=== PATIENT | male | born 1975 | race Caucasian/White ===

== ENCOUNTER 2016-12-29 12:58 | Outpatient (CLI) | payer OTHER | END 2016-12-29 12:59 | disposition home or self-care (01) | DX: S30.0XXA Contusion of lower back and pelvis, initial encounter (principal) ==

== ENCOUNTER 2017-01-03 14:24 | Outpatient (CLI) | payer OTHER | END 2017-01-03 14:25 | disposition home or self-care (01) | DX: M54.5 Low back pain (principal) ==

== ENCOUNTER 2017-05-29 10:48 | Outpatient (CLI) | payer OTHER ==
--- NOTE | 2017-05-29 13:56 | XRAY Report ---
COMPLETE CERVICAL SPINE: 05/29/2017 CLINICAL INDICATION: Radiculopathy. FINDINGS: AP, lateral, oblique, odontoid views of the cervical spine demonstrate degenerative disc a nd facet disease. Disk space narrowing is worst at C5-6. There is bilateral osseous neural foramina l narrowing, worst at C6-7. There is no evidence of acute fracture or subluxation. The prevertebral soft tissues are unremarkable. IMPRESSION: DEGENERATIVE CHANGES, WITH BILATERAL OSSEOUS NEURAL FORAMINAL NARROWING AT C6-7. JOB #: [id number] EXT JOB #:[id number]
== END 2017-05-29 10:49 | disposition home or self-care (01) ==
LOC: DI 10:48
PROVIDERS: ATTEND Family Medicine
DX: M50.10 Cervical disc disorder with radiculopathy, unspecified cervical region (principal); M47.812 Spondylosis without myelopathy or radiculopathy, cervical region
CPT/HCPCS: 72050

== ENCOUNTER 2018-06-04 12:42 | Emergency (ER) | payer OTHER ==
[2018-06-04 12:53] VITALS: BP 138/88
--- NOTE | 2018-06-04 13:56 | ED Physician Documentation ---
PD HPI LOWER EXT INJURY - Stated complaint Stated Complaint: LF CALI VS CHAIN SAW - Chief complaint Chief Complaint: Laceration - History obtained from History obtained from: Patient - History of Present Illness PD HPI LOW EXT INJURY LOCATION: Left, Lower leg Type of injury: Laceration (cutting with chain saw and caught outer part of lower leg, with large laceration of skin to fatty layer, not deeper.) Where injury occurred: Work Timing - onset: Today Timing - details: Abrupt onset, Still present Worsened by: Palpating Associated symptoms: No: Weakness, Numbness Similar symptoms before: Has not had sx before Recently seen: Not recently seen Review of Systems Skin: reports: Laceration (s) Neurologic: denies: Focal weakness, Numbness, Near syncope PD PAST MEDICAL HISTORY - Past Medical History Past Medical History: No Neuro: Peripheral neuropathy, Other Other Past Medical History: back injury causing neuropathy - Past Surgical History Past Surgical History: Yes Ortho: Shoulder arthroplasty - Present Medications Home Medications: Ambulatory Orders Medication Instructions Recorded Confirmed Cyclobenzaprine HCl 10 mg PO BID PRN 06/04/18 06/04/18 Gabapentin 800 mg PO QID 06/04/18 06/04/18 HYDROcod/ACETAM 5/325 [[place] 5/325] 1 tab PO Q6H PRN #15 tablet 06/04/18 oxyCODONE [Roxicodone] 10 mg PO Q6H 06/04/18 06/04/18 - Allergies Allergies/Adverse Reactions: Allergies Allergy/AdvReac Type Severity Reaction Status Date / Time No Known Drug Allergies Allergy Verified 06/04/18 13:33 - Social History Does the pt smoke?: Yes Smoking Status: Current every day smoker Does the pt drink ETOH?: Yes Does the pt have substance abuse?: No - Immunizations Immunizations are current?: Yes PD ED PE NORMAL - Vitals Vital signs reviewed: Yes - General General: Alert and oriented X 3, No acute distress, Well developed/nourished - Derm Derm: Normal color, Warm and dry - Extremities Extremities: Other (5 cm laceration through skin into fatty tissue lateral mid lower left leg. Edges are irregular and there are middle portions of devitalized skin, causing about 2 cm width of open fatty tissue once debrided. No FB seen. Irrigated well. Injury does not go into muscle. ) - Neuro Neuro: Alert and oriented X 3, No motor deficit, No sensory deficit, Normal speech Results - Vitals Vitals: Vital Signs - 24 hr 06/04/18 12:49 Temperature 36.2 C L Heart Rate 90 Respiratory 16 Rate Blood Pressure 138/88 H O2 Saturation 95 Oxygen O2 Source Room air Procedures - Laceration (location) left lower leg Length in cm: 5 Wound type: Irregular Neurovascular status: Sensory intact, Motor intact Anesthesia: Marcaine 0.5% with epi Wound Preparation: Irrigated copiously NS, Wound edges modified Deep layer closure: Vicryl, size #-0 - enter number (4), # sutures - enter number (10) Skin layer closure: Nylon, Running, Size #-0 - enter number (4), Sutures - enter # (20) Other: Patient tolerated well, Tetanus UTD Complexity: Intermediate PD MEDICAL DECISION MAKING - ED course Complexity details: reviewed results (shared decision not to get xrays as does not seem to bone. ), considered differential, d/w patient - Sepsis Event Vital Signs: Vital Signs - 24 hr 06/04/18 12:49 Temperature 36.2 C L Heart Rate 90 Respiratory 16 Rate Blood Pressure 138/88 H O2 Saturation 95 Oxygen O2 Source Room air Departure - Departure Disposition: 01 Home, Self Care Clinical Impression: Laceration of leg Qualifiers: Encounter type: initial encounter Laterality: left Qualified Code(s): S81.812A - Laceration without foreign body, left lower leg, initial encounter Condition: Stable Record reviewed to determine appropriate education?: Yes Instructions: ED Laceration Ext Sutr Stap Tape Follow-Up: Chad Paiz DO [Primary Care Provider] - Prescriptions: HYDROcod/ACETAM 5/325 [[place] 5/325] 1 tab PO Q6H PRN #15 tablet PRN Reason: Pain Comments: It is okay to wash and shower. Clean off the wound twice a day with soap and water, or peroxide and water. Apply some antibiotic ointment to it to keep it moist. Also to watch for signs of infection such as purulence, redness or increasing pain. Return to your primary care or the ER at the specified time for suture removal. Suture removal in 12-14 days. Minimal walking and no heavy physical activity for the first 3 or 4 days and then progress as able. Ibuprofen or naproxen or Tylenol if needed for pains. Add hydrocodone if needed for worse pain. Forms: Activity restrictions Discharge Date/Time: 06/04/18 15:51
== END 2018-06-04 15:51 | disposition home or self-care (01) ==
LOC: ED 12:42
DX: S81.812A Laceration without foreign body, left lower leg, initial encounter (principal); W31.82XA Contact with other commercial machinery, initial encounter; Y99.0 Civilian activity done for income or pay; F17.200 Nicotine dependence, unspecified, uncomplicated
CPT/HCPCS: 1040M; 12032; 99283

== ENCOUNTER 2018-06-15 13:19 | Emergency (ER) | payer OTHER ==
--- NOTE | 2018-06-15 13:24 | ED Physician Documentation ---
PD HPI WOUND RECHECK - Stated complaint Stated Complaint: STICHES REMOVAL - Histroy obtained from History obtained from: Patient - History of Present Illness Location: Left Lower Extremity Timing - onset: How many days ago (had laceration of leg 12 days ago, sutured here in ED by me. He says it is healing okay without infection. Has slight redness and itching at the sutures the past couple of days.) Associated symptoms: Redness (mild at stitch edges the past couple days). No: Fever, Swelling, Drainage Recently seen: Emergency Dept (12 days ago) Review of Systems Constitutional: denies: Fever, Chills, Myalgias Neurologic: denies: Focal weakness, Numbness PD PAST MEDICAL HISTORY - Past Medical History Neuro: Peripheral neuropathy, Other - Past Surgical History Past Surgical History: Yes Ortho: Shoulder arthroplasty - Present Medications Home Medications: Ambulatory Orders Medication Instructions Recorded Confirmed Cyclobenzaprine HCl 10 mg PO BID PRN 06/04/18 06/04/18 Gabapentin 800 mg PO QID 06/04/18 06/04/18 oxyCODONE [Roxicodone] 10 mg PO Q6H 06/04/18 06/04/18 - Allergies Allergies/Adverse Reactions: Allergies Allergy/AdvReac Type Severity Reaction Status Date / Time No Known Drug Allergies Allergy Verified 06/15/18 13:29 - Social History Does the pt smoke?: Yes Smoking Status: Current every day smoker Does the pt drink ETOH?: Yes Does the pt have substance abuse?: No - Immunizations Immunizations are current?: Yes PD ED PE NORMAL - Vitals Vital signs reviewed: Yes - General General: Alert and oriented X 3, No acute distress, Well developed/nourished - Derm Derm: Normal color, Warm and dry - Extremities Extremities: Other (left lateral lower leg with healing wound that has slight redness just at stitch holes c/w irritation. No drainage. No redness further than that. Skin edges appear adherent. Skin in the middle of the sutured edges ( parallel cuts sutured) appears viable. ) Results - Vitals Vitals: Vital Signs - 24 hr 06/15/18 13:28 Temperature 36.4 C L Heart Rate 84 Respiratory 16 Rate Blood Pressure 133/85 H O2 Saturation 99 Oxygen O2 Source Room air PD MEDICAL DECISION MAKING - ED course Complexity details: considered differential (healing well for the degree of laceration. No signs of infection. Will have a scar of course. ), d/w patient - Sepsis Event Vital Signs: Vital Signs - 24 hr 06/15/18 13:28 Temperature 36.4 C L Heart Rate 84 Respiratory 16 Rate Blood Pressure 133/85 H O2 Saturation 99 Oxygen O2 Source Room air Departure - Departure Disposition: 01 Home, Self Care Clinical Impression: Visit for suture removal Condition: Stable Record reviewed to determine appropriate education?: Yes Instructions: ED Wound Check Sutr Remove No Infec Follow-Up: Chad Paiz DO [Primary Care Provider] - Comments: The wound is looking good with just a slight inflammation from the sutures. The redness should improve as his stitches are out now. They should have been in there long enough for support of the skin. He can use the Steri-Strips are butterflies on there to support the skin several more days or so. Continue local wound care until fully healed which will likely be a few more weeks. Discharge Date/Time: 06/15/18 14:14
[2018-06-15 13:29] VITALS: BP 133/85
== END 2018-06-15 14:14 | disposition home or self-care (01) ==
LOC: ED 13:19
DX: S81.812D Laceration without foreign body, left lower leg, subsequent encounter (principal); X58.XXXD Exposure to other specified factors, subsequent encounter
CPT/HCPCS: 99283

== ENCOUNTER 2018-10-31 15:09 | Outpatient (CLI) | payer OTHER ==
--- NOTE | 2018-10-31 23:55 | XRAY Report ---
Reason: M25.551 PAIN IN RIGHT HIP Procedure Date: 10/31/2018 Accession Number: [id number] / [id number] Procedure: XR - Hip w/Pelvis 2-3V RT CPT Code: FULL RESULT: EXAM: RIGHT HIP AND PELVIS RADIOGRAPHY EXAM DATE: 10/31/2018 03:42 PM. HISTORY: M25. 551 PAIN IN RIGHT HIP. COMPARISONS: PELVIS 1 VIEW 12/29/2016 1:20 PM. TECHNIQUE: 1 view of the pelvis and 1 view of the hip. FINDINGS: Bones: Normal. No fracture or bone lesion. Joints: The bilateral hip, pubis symphysis, and sacroiliac joints are preserved. Soft Tissues: Normal. No soft tissue swelling. IMPRESSION: Normal pelvis and hip radiography. [facility]
== END 2018-10-31 15:10 | disposition home or self-care (01) ==
LOC: DI 15:09
PROVIDERS: ATTEND Family Medicine
DX: M25.551 Pain in right hip (principal)

== ENCOUNTER 2018-12-28 07:49 | Day surgery (SDC) | payer OTHER ==
[2018-12-28] MEDS ORDERED: LACTATED RINGERS 1,000 ML IV ONE ×3 (08:20→11:47)
--- NOTE | 2018-12-28 08:42 | ANESTHESIA ---
Pre-Anesthesia VS, & Labs - Diagnosis R inguinal hernia - Procedure R laparoscopic inguinal hernia repair Vital Signs: Temp Pulse Resp BP Pulse Ox 37.0 C 99 18 148/90 H 100 12/28/18 08:14 12/28/18 08:14 12/28/18 08:14 12/28/18 08:14 12/28/18 08:14 Height 6 ft 2 in Weight (kg) 92.9 kg Body Mass Index 25.7 - NPO >8 hours Home Medications and Allergies Cyclobenzaprine HCl 10 mg PO BID PRN 06/04/18 Gabapentin 800 mg PO QID 06/04/18 oxyCODONE [Roxicodone] 10 mg PO Q3H 06/04/18 Allergies/Adverse Reactions: Allergies Allergy/AdvReac Type Severity Reaction Status Date / Time No Known Drug Allergies Allergy Verified 06/15/18 13:29 Anes History & Medical History - Anesthetic History Anesthesia Complications: reports: Emergence delirium, Other-see comment (Woke up wild with last surgery (shoulder) and had 2 painful white spots on either side of uvula.) Family history of Anesthesia Complications: Denies Family history of Malignant Hyperthermia: Denies - Medical History Cardiovascular: reports: None Pulmonary: reports: None Gastrointestinal: reports: None Urinary: reports: None Neuro: reports: Peripheral neuropathy, Other Musculoskeletal: reports: Other Endocrine/Autoimmune: reports: None Skin: reports: Eczema Smoking Status: Current every day smoker Psychosocial: reports: Alcohol (2-3 week), Opioid (80mg oxycodone daily) - Surgical History General: Other Orthopedic: Rotator cuff repair, Arthroscopic surgery Exam General: Alert, Oriented x3, Cooperative Dental: WNL Mouth Openin Fingerbreadth Mallampati classification: I Thyromental Distance: 4-6 cm Respiratory: Lungs clear, Normal breath sounds, No respiratory distress Cardiovascular: Regular rate Neurological: Normal speech, Other (neuropathies at L UE (thumb, index,and middle finger) Tarsal tunnel syndrome @B LE) Mental/Cognitive Status: Alert/Oriented X3, Normal for patient Plan Anesthesia Type: General Consent for Procedure(s) Verified and Reviewed: Yes Code Status: Attempt Resuscitation ASA classification: 2-Mild systemic disease Is this case an emergency?: No
[2018-12-28] MEDS ORDERED: ceFAZolin 2 GM/50 ML 2 GM/50 ML BAG IV ONE (09:23)
[2018-12-28] MEDS ORDERED: BUPIVACAINE 0.5% PF 30 ML VIAL ONE (09:42)
[2018-12-28] MEDS ORDERED: GLYCOPYRROLATE 1 MG/5 ML VIAL IVP ONE (09:58)
[2018-12-28] MEDS ORDERED: ONDANSETRON 4 MG/2 ML VIAL IVP ONE (09:58)
[2018-12-28] MEDS ORDERED: MIDAZOLAM 2 MG/2 ML VIAL IVP ONE (09:58)
[2018-12-28] MEDS ORDERED: DEXAMETHASONE 4 MG/ML VIAL IVP ONE (09:58)
[2018-12-28] MEDS ORDERED: KETOROLAC 30 MG/ML VIAL IVP ONE (09:58)
[2018-12-28] MEDS ORDERED: fentaNYL 100 MCG/2 ML VIAL IVP ONE (09:58)
[2018-12-28] MEDS ORDERED: LIDOCAINE-MPF 2% 5 ML VIAL IM ONE (09:58)
[2018-12-28] MEDS ORDERED: NEOSTIGMINE 1 MG/1 ML 10 ML MDV IVP ONE (09:58)
[2018-12-28] MEDS ORDERED: ACETAMINOPHEN 1,000 MG/100 ML 100 ML IV ONE (09:58)
[2018-12-28] MEDS ORDERED: ROCURONIUM 50 MG/5 ML VIAL IVP ONE (09:58)
[2018-12-28] MEDS ORDERED: PROPOFOL 200 MG/20 ML VIAL IVP ONE (09:58)
[2018-12-28] MEDS ORDERED: HYDROmorphone 1 MG/ML CARPUJECT IVP ONE (09:58)
[2018-12-28] MEDS ORDERED: BUPIVACAINE 0.5% PF 30 ML VIAL SUBQ ONE ×2 (10:29)
--- NOTE | 2018-12-28 11:27 | IMMEDIATE POSTOPERATIVE NOTE ---
Immediate Postoperative Note - Procedure Note Procedure Date: 12/28/18 Pre-Op Diagnosis: right inguinal hernia Procedure: lap TEP repair right inguinal hernia with mesh Post-Op Diagnosis: indirect rt inguinal hernia Primary Surgeon: tao Anesthesia Type: General ET tube Complications: No complications Estimated Blood Loss (in cc): 10 Plan of Care: d/c
[2018-12-28] MEDS: HYDROmorphone 1 MG/ML CARPUJECT ONE ×2 (11:35→11:41)
[2018-12-28] MEDS: HYDROmorphone 0.5 MG/0.5 ML SYRINGE ONE ×2 (11:46→11:52)
[2018-12-28] MEDS ORDERED: HYDROmorphone 0.5 MG/0.5 ML SYRINGE ONE (11:57)
[2018-12-28] MEDS: fentaNYL 100 MCG/2 ML VIAL ONE ×2 (12:01→12:08)
--- NOTE | 2018-12-28 12:02 | OPERATIVE REPORT ---
DATE OF SERVICE: 12/28/2018 Physician: Chad Aleman MD PREOPERATIVE DIAGNOSIS: Right inguinal hernia. POSTOPERATIVE DIAGNOSIS: Right indirect inguinal hernia. PROCEDURE: Right TEP repair with mesh SURGEON: Chad Aleman M.D. INDICATIONS: The patient is a 43-year-old man, who presented to the clinic complaining of a painful right inguinal hernia. He was counseled to quit smoking prior to repair; however, he declined and accepted the increased risks associated with smoking and requested to have it repaired now. Therefore, we made plans to take him to the operating room. PROCEDURE IN DETAIL: The risks and benefits were explained to the patient, who agreed to the procedure. He was taken to the operating room and placed under general anesthesia and intubated. A Maher catheter was placed. Both arms were tucked. The abdomen was prepped and draped, time-out was performed, and everyone in the room agreed to the procedure. We began by making a 12 mm infraumbilical incision, transverse. We carried this down to the anterior rectus fascia. This was incised for a distance of about a centimeter, again transversely, exposing the rectus muscle. The rectus muscle was retracted laterally, and the dissecting balloon on the tissue truck packer was inserted into the rectus sheath. It was directed towards the pubic symphysis and inserted fully We began inflating the balloon and inserted the camera into the trocar. We watched the balloon inflate, and saw it was in good position. Once it was fully inflated, we slowly deflated it and removed it, and then insufflated the preperitoneal space to 15 mmHg. We inspected the left side and did not see a hernia on that side. We then turned to the right side, saw an indirect hernia defect, and bluntly dissected the peritoneum down, and dissected the hernia sac free of the spermatic cord as well. Once we had an adequate space to place the mesh, we inserted our preformed Prolene hernia mesh into the created space, and using AbsorbaTack to place two tacks into the mesh to the pubic symphysis, and then one tack laterally and superior, well above the shelving edge. We then slowly deflated the preperitoneal space and watched the peritoneum rise, and made sure that the mesh was between the hernia defect and the peritoneum. We then removed our three trocars, closed the fascial defect using a 0 Vicryl stitch. The skin of all three incisions was closed using 4-0 Monocryl and Dermabond. 10 mL of local anesthetic was infused prior to closure. This terminated the procedure. The patient tolerated it well. He was extubated and taken to the recovery in stable condition. Instrument and lap counts were correct ESTIMATED BLOOD LOSS: 10 mL. SPECIMEN: None. COMPLICATIONS: None. PLAN: Plan is for the patient to go home later today. TD: 12/28/2018 11:33 MTDD
[2018-12-28] MEDS ORDERED: oxyCODONE 5 MG TABLET ONE (12:38)
[2018-12-28 12:48] VITALS: BP 134/84
[2018-12-28] MEDS ORDERED: oxyCODONE 5 MG TABLET PO ONE (13:00)
== END 2018-12-28 07:50 | disposition home or self-care (01) ==
LOC: SDS 07:49
PROVIDERS: ATTEND Surgery
PROC: 0YU54JZ Supplement Right Inguinal Region with Synthetic Substitute, Percutaneous Endoscopic Approach (ICD-10-PCS; principal; 2018-12-28 09:00)
DX: K40.91 Unilateral inguinal hernia, without obstruction or gangrene, recurrent (principal); G62.9 Polyneuropathy, unspecified; R73.03 Prediabetes; F17.210 Nicotine dependence, cigarettes, uncomplicated
CPT/HCPCS: 49651; A9270; C1781; J0690; J1170; J7120

== ENCOUNTER 2019-03-19 08:33 | Emergency (ER) | payer OTHER ==
[2019-03-19 08:47] VITALS: BP 145/109
[2019-03-19] MEDS ORDERED: LIDOCAINE 1%-EPI 1:100000 30 ML MDV SUBQ STA (08:51)
[2019-03-19] MEDS ORDERED: LIDOCAINE MPF 1%-EPI 1:200000 30 ML VIAL ONE (09:00)
--- NOTE | 2019-03-19 09:08 | ED Physician Documentation ---
PD HPI UPPER EXT INJURY - Stated complaint Stated Complaint: LT ELBOW INJURY - Chief complaint Chief Complaint: Trauma Ext - History obtained from History obtained from: Patient - History of Present Illness Location: Left, Elbow Type of injury: Blunt / blow Where injury occurred: Work Timing - onset: How many weeks ago (2) Timing - duration: Weeks (2 weeks ago he bumped his left elbow on a car door at work then developed gradually worsening swelling of the L elbow without difficult ROM or significant pain. No fever) Timing - details: Gradual onset Pain level max: 1 Pain level now: 1 Improved by: Nothing Worsened by: No: Moving, Palpating Associated symptoms: Swelling. No: Weakness, Numbness, Tingling Contributing factors: No: Anticoagulated, Prior ortho surgery Similar symptoms before: Has not had sx before Recently seen: Not recently seen Review of Systems Ten Systems: 10 systems reviewed and negative Constitutional: denies: Fever, Chills GI: reports: Abdominal Pain. denies: Nausea, Vomiting Musculoskeletal: reports: Joint swelling. denies: Extremity pain, Joint pain Neurologic: denies: Generalized weakness, Focal weakness, Numbness Endocrine: denies: Easy bruising / bleeding PD PAST MEDICAL HISTORY - Past Medical History Cardiovascular: None Respiratory: None Neuro: Peripheral neuropathy, Other Endocrine/Autoimmune: None GI: None : None HEENT: None Psych: None Musculoskeletal: Other Derm: Eczema - Past Surgical History Past Surgical History: Yes General: Other Ortho: Rotator cuff repair, Arthroscopic surgery - Present Medications Home Medications: Ambulatory Orders Medication Instructions Recorded Confirmed Cyclobenzaprine HCl 10 mg PO BID PRN 06/04/18 12/24/18 Gabapentin 800 mg PO QID 06/04/18 12/24/18 oxyCODONE [Roxicodone] 10 mg PO Q3H 06/04/18 12/24/18 - Allergies Allergies/Adverse Reactions: Allergies Allergy/AdvReac Type Severity Reaction Status Date / Time No Known Drug Allergies Allergy Verified 03/19/19 08:47 - Social History Does the pt smoke?: Yes Smoking Status: Current every day smoker Does the pt drink ETOH?: Yes Does the pt have substance abuse?: No - Immunizations Immunizations are current?: Yes - POLST Patient has POLST: No PD ED PE NORMAL - Vitals Vital signs reviewed: Yes - General General: Alert and oriented X 3 - HEENT HEENT: Atraumatic - Neck Neck: Supple, no meningeal sign - Cardiac Cardiac: RRR - Respiratory Respiratory: No respiratory distress - Abdomen Abdomen: Soft, Non distended - Male Male : Deferred - Rectal Rectal: Deferred - Derm Derm: Normal color, Warm and dry, Other (left elbow bursa is red swollen, nontender) - Extremities Extremities: No deformity, Normal ROM s pain, Other (left elbow bursa is red, swollen, nontender) - Neuro Neuro: Alert and oriented X 3 Eye Opening: Spontaneous Motor: Obeys Commands Verbal: Oriented GCS Score: 15 - Psych Psych: Normal mood, Normal affect Results - Vitals Vitals: Vital Signs - 24 hr 03/19/19 08:46 Temperature 37.0 C Heart Rate 90 Respiratory 18 Rate Blood Pressure 145/109 H O2 Saturation 99 Oxygen O2 Source Room air Procedures - General procedure General procedure: L olecranon bursa aspiration. Performed a L olecranon bursal aspiration using sterile technique, sterile gloves, chlorahexidine cleanse followed by 5cc of 1% lidocaine with epi and then aspirated 17cc of bloody bursal fluid. PD MEDICAL DECISION MAKING - ED course Complexity details: re-evaluated patient, considered differential, d/w patient ED course: DDx - bursitis, infected bursitis, septic joint, elbow sprain, elbow fracture. 43 y/o M with painless inflammed bursa of L elbow with increased swelling recently after a direct blow on a car door. Fairly minor trauma. Pt is not anticoagulated. Drained the bursa here with sterile technique. Fluuid was bloody, nonpurulent, not thick. Likely do to trauma. No signs or symptoms of infection. Pt can take tylenol or ibuprofen as needed. Pt stable for outpt f/u as needed. Given return precautions Departure - Departure Disposition: 01 Home, Self Care Clinical Impression: Olecranon bursitis of left elbow Instructions: ED Bursitis Follow-Up: Chad Paiz DO [Primary Care Provider] - As Needed Comments: You had an inflammed blood filled bursal sac that was drained from your left elbow with an aspiration technique. This removed 17cc of fluid. It does not appear infected and should completely resolve. You can take tylenol or ibuprofen for pain. Return to the ED for any signs of infection - redness, recurrent swelling or increased pain.
== END 2019-03-19 09:17 | disposition home or self-care (01) ==
LOC: ED 08:33
DX: M70.22 Olecranon bursitis, left elbow (principal); W22.8XXA Striking against or struck by other objects, initial encounter; Y93.89 Activity, other specified; Y99.0 Civilian activity done for income or pay; F17.200 Nicotine dependence, unspecified, uncomplicated
CPT/HCPCS: 1040M; 20605; 99282; 99283

== ENCOUNTER 2020-06-02 12:46 | Outpatient (CLI) | payer OTHER ==
[2020-06-02] MEDS ORDERED: IOVERSOL 320 100 ML VIAL IVP ONE ×2 (12:57→13:20)
--- NOTE | 2020-06-02 15:04 | CT Report ---
PROCEDURE: CHEST W INDICATIONS: HORNERS SYNDROME CONTRAST: IV CONTRAST: Optiray 320 ml: 100 PO CONTRAST: *NO PO CONTRAST TECHNIQUE: After the administration of intravenous contrast, 5 mm thick sections acquired from the pulmonary api jeison to the posterior costophrenic angles. 7 mm thick coronal MIP reformats were acquired. For radia tion dose reduction, the following was used: automated exposure control, adjustment of mA and/or kV according to patient size. COMPARISON: None. FINDINGS: Image quality: Excellent. Lungs and pleura: Mild apical predominant paraseptal and centrilobular emphysematous change. There is no lung mass or suspicious lung nodule demonstrated. No consolidation or other airspace opacity. No significant interstitial abnormality. No abnormal pleural findings. Mediastinum: Normal heart size. No pericardial effusion. No threshold enlarged mediastinal or hilar l ymph node. No mediastinal mass or abnormal mediastinal enhancement. Normal appearance of the mediasti nal vasculature and arch branch vessels. Esophagus is within normal limits. Bones and chest wall: No acute or suspicious osseous lesion. Normal thyroid gland. And subcutaneous s oft tissues unremarkable. Abdomen: No acute finding in the included upper abdomen. Mild hepatic steatosis. IMPRESSION: Unremarkable CT of the chest with no finding to explain symptoms. Specifically, no lung mass, mediast inal mass, or paraspinal mass. Reviewed by: Mikhail Abdi MD on 06/02/2020 3:03 PM PDT Approved by: Mikhail Abdi MD on 06/02/2020 3:03 PM PDT Station ID: [id number]
== END 2020-06-02 12:47 | disposition home or self-care (01) ==
LOC: DI 12:46
PROVIDERS: ATTEND Family Medicine
DX: G90.2 Horner's syndrome (principal)
CPT/HCPCS: 71260; Q9967

== ENCOUNTER 2020-06-06 10:25 | Outpatient (CLI) | payer OTHER ==
--- NOTE | 2020-06-08 11:30 | MRI Report ---
PROCEDURE: Angio Brain W/O (MRA) INDICATIONS: HORNERS SYNDROME TECHNIQUE: Noncontrast axial 3-D [id number] MR angiogram, with 3-dimensional maximum intensity projection (M IP) reformats of the internal carotid arteries and posterior circulation then performed. COMPARISON: None. FINDINGS: Image quality: Excellent. Anterior circulation: Intracranial internal carotid arteries demonstrate normal size and intralumina l flow signal. The flow within the paired anterior cerebral arteries is normal and symmetric. The f low within the middle cerebral arteries is normal and symmetric. The anterior communicating artery i s seen. No stenoses, occlusions, or aneurysms. Posterior circulation: Visualized portions of the vertebral arteries demonstrate normal caliber, and join to form a normal appearing basilar artery. The flow within the posterior cerebral arteries is normal and symmetric. No stenoses, occlusions, or aneurysms. IMPRESSION: 1. Normal MR angiogram of the head. 2. No evidence of vascular dissection involving the visualized portions of the internal carotid arter ies. Reviewed by: Ute Swann MD, PhD on 06/08/2020 11:28 AM PDT Approved by: Ute Swann MD, PhD on 06/08/2020 11:28 AM PDT Station ID: [id number]
== END 2020-06-06 10:26 | disposition home or self-care (01) ==
LOC: DI 10:25
PROVIDERS: ATTEND Family Medicine
DX: G90.2 Horner's syndrome (principal)
CPT/HCPCS: 70544

== ENCOUNTER 2021-10-11 08:00 | Outpatient (CLI) | payer OTHER ==
--- NOTE | 2021-10-11 10:16 | XRAY Report ---
PROCEDURE: Shoulder 3 View LT INDICATIONS: STRAIN OF UPPER LEFT ARM TECHNIQUE: 3 views of the shoulder were acquired. COMPARISON: None. FINDINGS: High riding humeral head suggestive of chronic rotator cuff tear. Mild arthritic changes of the acrom ioclavicular joint. No significant arthritic changes or joint space narrowing in the glenohumeral dahiana nt. No suspicious lytic or blastic osseous lesion. No acute osseous finding or acute soft tissue find ings. IMPRESSION: High riding humeral head is suggestive of chronic rotator cuff tear. Mild acromioclavicu lar arthritic changes. Reviewed by: Mikhail Abdi MD on 10/11/2021 10:15 AM PST Approved by: Mikhail Abdi MD on 10/11/2021 10:15 AM PST Station ID: [id number]
== END 2021-10-11 23:59 | disposition home or self-care (01) ==
LOC: DI.S 08:00
PROVIDERS: ATTEND Emergency Medicine
DX: S46.812D Strain of other muscles, fascia and tendons at shoulder and upper arm level, left arm, subsequent encounter (principal); M19.012 Primary osteoarthritis, left shoulder; R93.6 Abnormal findings on diagnostic imaging of limbs

== ENCOUNTER 2021-11-15 07:40 | Outpatient (CLI) | payer OTHER ==
--- NOTE | 2021-11-15 16:34 | MRI Report ---
PROCEDURE: Shoulder LT W/O INDICATIONS: L SHOULDER STRAIN TECHNIQUE: Noncontrast oblique coronal T2 fast spin echo with fat saturation, oblique sagittal T1 spin echo and T2 fast spin echo with fat saturation, axial T1 spin echo and T2 fast spin echo with fat saturation t hrough the shoulder. COMPARISON: None. Findings: Supraspinatus: Mild tendinopathy with small interstitial and partial articular surface tears. Infraspinatus: Mild tendinopathy with small interstitial and partial articular surface tears. Subscapularis: Mild tendinopathy without evidence of tear. Teres minor: No evidence of tear. Labrum: No evidence of tear. Biceps tendon: No evidence of subluxation or tear. Acromioclavicular joint: Moderate arthrosis with T2 hyperintense signal within the articulation as w ell as slight widening. Muscle: No significant atrophy. Bones: No acute abnormality. Specifically, no evidence of fracture, contusion, or necrosis. A 4.4 x 2 .8 cm T2 hyperintense/T1 hypointense, lobulated lesion is seen within the proximal humerus. The overl stu cortex appears maintained. Miscellaneous: No glenohumeral joint effusion. Trace subacromial/subdeltoid bursal fluid. No intra-articular bodies. Intact coracoclavicular ligament. IMPRESSION: 1. Mild supraspinatus and infraspinatus tendinopathy with small interstitial and partial articular fields rface tears. 2. Mild subscapularis tendinopathy without evidence of tear. 3. Edema within the AC joint articulation with slight widening. 4. Lesion within the proximal humerus, favored to represent an enchondroma. Reviewed by: Dougie Sebastian MD on 11/15/2021 4:32 PM PST Approved by: Dougie Sebastian MD on 11/15/2021 4:32 PM PST Station ID: [id number]
== END 2021-11-15 07:41 | disposition home or self-care (01) ==
LOC: DI 07:40
PROVIDERS: ATTEND Family Medicine
DX: S46.012D Strain of muscle(s) and tendon(s) of the rotator cuff of left shoulder, subsequent encounter (principal); M89.9 Disorder of bone, unspecified; R93.6 Abnormal findings on diagnostic imaging of limbs

== ENCOUNTER 2022-01-25 13:45 | Outpatient (CLI) | payer OTHER ==
--- NOTE | 2022-01-26 10:58 | XRAY Report ---
PROCEDURE: Shoulder 3 View LT INDICATIONS: LEFT SHOULDER PAIN TECHNIQUE: 4 views of the shoulder were acquired. COMPARISON: X-ray left shoulder, 10/11/2021. MRI left shoulder, 11/15/2021. FINDINGS: Bones: No fractures or dislocations. No suspicious bony lesions. There is a sclerotic lesion with serpiginous calcification in the humeral head and neck, most likely a low-grade chondroid lesion such as an enchondroma. Mild acromioclavicular and glenohumeral joint degeneration. Visualized ribs appea r intact. Soft tissues: No suspicious soft tissue calcifications. IMPRESSION: 1. Mild degenerative joint disease. 2. A chondroid lesion in the left humeral head and neck, most likely an enchondroma. If there is incr ease in pain, follow-up MRI with contrast may be helpful. Reviewed by: Harjeet Prajapati MD on 01/26/2022 10:57 AM PDT Approved by: Harjeet Prajapati MD on 01/26/2022 10:57 AM PDT Station ID: [id number]
== END 2022-01-25 23:59 | disposition home or self-care (01) ==
LOC: DI.WOS 13:45
PROVIDERS: ATTEND Orthopaedic Surgery
DX: D16.02 Benign neoplasm of scapula and long bones of left upper limb (principal); M19.012 Primary osteoarthritis, left shoulder

== ENCOUNTER 2022-01-27 09:22 | Outpatient (CLI) | payer OTHER ==
--- NOTE | 2022-01-27 13:55 | XRAY Report ---
PROCEDURE: Lumbar Spine Complete INDICATIONS: RIGHT SCIATICA TECHNIQUE: 5 views of the lumbar spine were acquired. COMPARISON: None. FINDINGS: Bones: 5 [id number] vertebrae are present. The vertebral bodies demonstrate mild degenerative changes. Facet arthrosis in the lower lumbar spine. Leftward curvature in the lumbar spine. There is normal bony alignment. No vertebral body compression fractures. No suspicious bony lesions. Soft tissues: Overlying bowel gas pattern is normal. No suspicious soft tissue calcifications. IMPRESSION: 1. No acute abnormality of the lumbar spine. 2. Mild degenerative changes and facet arthrosis in the lower lumbar spine. Reviewed by: Hemant Ryder on 01/27/2022 1:53 PM PDT Approved by: Hemant Ryder on 01/27/2022 1:53 PM PDT Station ID: [id number]
== END 2022-01-27 09:23 | disposition home or self-care (01) ==
LOC: DI 09:22
PROVIDERS: ATTEND Family Medicine
DX: M47.26 Other spondylosis with radiculopathy, lumbar region (principal); M51.17 Intervertebral disc disorders with radiculopathy, lumbosacral region

== ENCOUNTER 2023-01-05 16:50 | Outpatient (CLI) | payer OTHER ==
--- NOTE | 2023-01-06 08:36 | MRI Report ---
PROCEDURE: HIP WO - RT INDICATIONS: RIGHT HIP PAIN TECHNIQUE: Noncontrast coronal T1 spin echo and STIR through the bony pelvis. Coronal and axial T2 fast spin ec ho with fat saturation, sagittal T1 spin echo, and oblique axial T2 fast spin echo with fat saturatio n through the hip. COMPARISON: Right hip radiographs 10/21/2018. FINDINGS: Image quality: Excellent. Bones and joints: Bone marrow of the pelvic ring and proximal femurs show normal signal throughout. No intraosseous lesions or fractures. No avascular necrosis of the femoral heads. Disc desiccation and facet hypertrophy are seen in the included lumbar spine. Tendons: There is tendinosis of the distal gluteus medius and minimus tendons and low-grade partial t earing of the distal gluteus medius insertion on the greater trochanter with mild surrounding soft ti ssue edema and trace trochanter bursal fluid. The iliopsoas tendon appears intact, without adjacent b ursal fluid collections. The origin of the hamstring tendon inserts mild tendinosis. The tendons fo r the direct and indirect heads of the rectus femoris muscle appear intact. Labrum and cartilage: There is nondisplaced tearing of the anterosuperior labrum. No focal cartilage defect. Mild degenerative spurring at the lateral acetabulum. There is normal morphology of the femor al head and acetabulum. Soft tissues: Visualized muscles demonstrate normal bulk and internal signal. The proximal sciatic neurovascular bundle appears normal adjacent to the hamstring tendons. No acute abnormality is seen i n the included pelvis. A few diverticula are seen in the colon. IMPRESSION: 1.Nondisplaced tearing of the anterosuperior labrum. 2.Low-grade partial tearing of the distal gluteus minimus tendon at its insertion onto the greater tr ochanter superimposed on mild gluteus medius and minimus tendinosis. 3.Mild proximal hamstring tendinosis. 4.Mild degenerative changes in the included lumbar spine. Reviewed by: Manny Zavaleta MD on 01/06/2023 8:35 AM PDT Approved by: Manny Zavaleta MD on 01/06/2023 8:35 AM PDT Station ID: [id number]
== END 2023-01-05 16:51 | disposition home or self-care (01) ==
LOC: DI 16:50
PROVIDERS: ATTEND Family Medicine
DX: S73.191A Other sprain of right hip, initial encounter (principal); S76.021A Laceration of muscle, fascia and tendon of right hip, initial encounter; M67.853 Other specified disorders of tendon, right hip; M47.816 Spondylosis without myelopathy or radiculopathy, lumbar region

== ENCOUNTER 2024-03-04 08:00 | Outpatient (CLI) | payer OTHER ==
--- NOTE | 2024-03-04 16:28 | XRAY Report ---
PROCEDURE: Lumbar Spine 2-3V INDICATIONS: LOW BACK STRAIN TECHNIQUE: 2 views of the lumbar spine were acquired. COMPARISON: 01/27/2022 FINDINGS: Bones: 5 [id number] vertebrae are present. There is normal bony alignment. No vertebral body compression fractures. No suspicious bony lesions. Moderate disc height loss at all levels. Facet a rthrosis of L3-S1. Soft tissues: Overlying bowel gas pattern is normal. No suspicious soft tissue calcifications. IMPRESSION: Moderate, multilevel degenerative disc disease and lower lumbar facet arthrosis, slightly progressed since 2021. Reviewed by: Simone Owens MD on 03/04/2024 4:27 PM PDT Approved by: Simone Owens MD on 03/04/2024 4:27 PM PDT Station ID: [id number]
== END 2024-03-04 23:59 | disposition home or self-care (01) ==
LOC: DI.S 08:00
PROVIDERS: ATTEND Registered Nurse
DX: M47.816 Spondylosis without myelopathy or radiculopathy, lumbar region (principal); M47.817 Spondylosis without myelopathy or radiculopathy, lumbosacral region; M51.36 Other intervertebral disc degeneration, lumbar region; M51.37 Other intervertebral disc degeneration, lumbosacral region

== ENCOUNTER 2024-05-23 21:31 | Outpatient (CLI) | payer OTHER ==
--- NOTE | 2024-05-24 14:09 | Ultrasound Report ---
PROCEDURE: Pelvic Limited INDICATIONS: INGUINAL HERNIA TECHNIQUE: Real-time transabdominal scanning was performed of the inguinal region, with image documentation. COMPARISON: None. FINDINGS: Compared ultrasound of the a left inguinal region demonstrates a left inguinal hernia containing jonny l and fat. The neck measures 3.3 cm and the sac measures 3.8 x 2.8 cm. This is partially reducible. IMPRESSION: Partially reducible left inguinal hernia containing fat and bowel. Reviewed by: Simone Owens MD on 05/24/2024 2:08 PM PDT Approved by: Simone Owens MD on 05/24/2024 2:08 PM PDT Station ID: [id number]
== END 2024-05-23 21:32 | disposition home or self-care (01) ==
LOC: DI 21:31
PROVIDERS: ATTEND Nurse Practitioner
DX: K40.90 Unilateral inguinal hernia, without obstruction or gangrene, not specified as recurrent (principal)